=== PATIENT | female | born 1985 | race Caucasian/White ===

== ENCOUNTER 2019-05-31 23:09 | Emergency (ER) | payer BC ==
[~2019-05-31] VITALS: Ht 162.6 cm; Wt 61.2 kg
[2019-05-31 23:30] VITALS: Ht 162.6 cm; Wt 61.2 kg
[2019-06-01 00:58] VITALS: BP 141/97
== END 2019-06-01 00:58 | disposition home or self-care (01) ==
LOC: ED 23:09
DX: M54.81 Occipital neuralgia (principal); I10 Essential (primary) hypertension; Z98.84 Bariatric surgery status
CPT/HCPCS: 20552; J2001